=== PATIENT | female | born 1960 | race African-American/Black ===

== ENCOUNTER 2018-09-16 14:53 | Emergency (ER) | payer MEDICAID ==
[~2018-09-16] VITALS: Ht 167.6 cm; Wt 88.0 kg
[~2018-09-16 14:53] MED LIST: ACET1TAB14 PO; DIAZ10TA PO; OCD MT; VIT PO
[2018-09-16 15:58] LABS: BASOPHILS % 0.5 % (0.0-2.0); EOSINOPHILS % 2.3 % (0.0-5.0); HEMATOCRIT. 38.7 % (36.0-48.0); HEMOGLOBIN. 12.4 g/dL (12.0-16.0); MEAN CORPUSCULAR HEMOGLOBIN 24.3 pg (28.0-32.0); MEAN CORPUSCULAR VOLUME 76.1 fL (81.0-99.0); MEAN PLATELET VOLUME 8.6 fl (7.4-10.4); MONOCYTES % 8.8 % (2.0-8.0); NEUTROPHILS % 29.4 % (40.0-76.0); PLATELET 176 x1000/uL (130-400); RED BLOOD CELL COUNT 5.08 mill/uL (4.2-5.4); RED CELL DISTRIBUTION WIDTH 15.9 % (11.6-14.6)
[2018-09-16 16:07] LABS: CHLORIDE 109 mEq/L (98-107)
[2018-09-16 16:12] LABS: ETHANOL BLOOD < 10 mg/dL
[2018-09-16 16:46] LABS: *AMPHETAMINES SCREEN URINE NEGATIVE (NEGATIVE); *BARBITURATES SCREEN URINE NEGATIVE (NEGATIVE); *BENZODIAZEPINES SCREEN URINE PRESUMTIVE POSITIVE (NEGATIVE); *COCAINE SCREEN URINE NEGATIVE (NEGATIVE); METHADONE URINE SCREEN NEGATIVE (NEGATIVE)
[2018-09-16 16:47] LABS: CANNABINOID URINE SCREEN PRESUMTIVE POSITIVE (NEGATIVE); OPIATES URINE SCREEN PRESUMTIVE POSITIVE (NEGATIVE); PHENCYCLIDINE URINE SCREEN NEGATIVE (NEGATIVE)
[2018-09-17] MEDS ORDERED: OLANZAPINE 10 MG/VIAL IM ONE (03:45)
[2018-09-17] MEDS ORDERED: ACETAMINOPHEN 325MG TABLET PO ONE ×2 (15:30→20:45)
[2018-09-18] MEDS: ACETAMINOPHEN 325MG TABLET PO NR ×2 (08:45→12:06)
[2018-09-18 10:24] LABS: CLARITY URINE CLEAR (CLEAR); COLOR URINE YELLOW (YELLOW); KETONES URINE NEGATIVE (NEGATIVE); LEUKOCYTE ESTERASE URINE 2+ (NEGATIVE); NITRITE URINE NEGATIVE (NEGATIVE); OCCULT BLOOD URINE NEGATIVE (NEGATIVE); PROTEIN URINE NEGATIVE (NEGATIVE); UROBILINOGEN URINE 0.2 E.U./dL (0.2-1.0)
[2018-09-18] MEDS ORDERED: NITROFURANTOIN 100MG M/M CAPSULE PO ONE (11:30)
[2018-09-18 16:00] VITALS: BP 130/67
== END 2018-09-18 16:35 ==
LOC: ER 14:53
DX: T42.4X2A Poisoning by benzodiazepines, intentional self-harm, initial encounter (principal); R52 Pain, unspecified; F33.3 Major depressive disorder, recurrent, severe with psychotic symptoms; N39.0 Urinary tract infection, site not specified; F11.10 Opioid abuse, uncomplicated; F12.10 Cannabis abuse, uncomplicated; F15.10 Other stimulant abuse, uncomplicated; Y92.098 Other place in other non-institutional residence as the place of occurrence of the external cause
CPT/HCPCS: 36415; 80048; 80076; 80305; 80307; 80320; 80329; 81003; 85025; 93005; 96372; 99284; J3490; G0480

== ENCOUNTER 2019-03-20 13:05 | Emergency (ER) | payer MEDICAID ==
[~2019-03-20] VITALS: Ht 167.6 cm; Wt 57.0 kg
[2019-03-20] MEDS ORDERED: ACETAMINOPHEN WITH CODEINE 300/30MG TABLET PO STA (15:03)
[2019-03-20 15:37] LABS: BASOPHILS % 0.5 % (0.0-2.0); EOSINOPHILS % 1.2 % (0.0-5.0); HEMATOCRIT. 39.3 % (36.0-48.0); HEMOGLOBIN. 12.5 g/dL (12.0-16.0); LYMPHOCYTES % 49.2 % (20.0-50.0); MEAN CORPUSCULAR VOLUME 75.3 fL (81.0-99.0); MEAN PLATELET VOLUME 8.6 fl (7.4-10.4); MONOCYTES % 7.8 % (2.0-8.0); NEUTROPHILS % 41.3 % (40.0-76.0); PLATELET 187 x1000/uL (130-400); RED BLOOD CELL COUNT 5.21 mill/uL (4.2-5.4); RED CELL DISTRIBUTION WIDTH 15.6 % (11.6-14.6)
[2019-03-20 15:44] LABS: CHLORIDE 109 mEq/L (98-107)
[2019-03-20] MEDS ORDERED: KETOROLAC 60MG/2ML VIAL IM ONE (16:45)
[2019-03-20] MEDS ORDERED: HYDROCODONE/ACETAMINOPHEN 5/325MG TABLET PO ONE (19:15)
[2019-03-20 21:20] VITALS: BP 114/64
== END 2019-03-20 21:30 | disposition home or self-care (01) ==
LOC: ER 13:05
DX: R07.89 Other chest pain (principal)
CPT/HCPCS: 36415; 71045; 80053; 83880; 84484; 85025; 93005; 96372; 99284; J1885

== ENCOUNTER 2020-05-29 13:04 | Emergency (ER) | payer MEDICAID ==
[~2020-05-29] VITALS: Ht 167.6 cm; Wt 55.0 kg
[~2020-05-29 13:04] MED LIST changes: +ALBU18HF2 IH; +FLUT1DIS3 INH; +HYDR-4001 MT; +IPRA3AMP9 NEB; +METO25TA6 PO
[2020-05-29 14:12] LABS: BASOPHILS % 0.7 % (0.0-2.0); HEMATOCRIT. 39.7 % (36.0-48.0); HEMOGLOBIN. 12.7 g/dL (12.0-16.0); LYMPHOCYTES % 48.4 % (20.0-50.0); MEAN CORPUSCULAR HEMOGLOBIN 23.8 pg (28.0-32.0); MEAN CORPUSCULAR VOLUME 74.1 fL (81.0-99.0); MEAN PLATELET VOLUME 8.2 fl (7.4-10.4); MONOCYTES % 9.2 % (2.0-8.0); NEUTROPHILS % 40.7 % (40.0-76.0); PLATELET 208 x1000/uL (130-400); RED BLOOD CELL COUNT 5.36 mill/uL (4.2-5.4); RED CELL DISTRIBUTION WIDTH 15.3 % (11.6-14.6)
[2020-05-29 14:19] LABS: CHLORIDE 107 mEq/L (98-107)
[2020-05-29] MEDS ORDERED: HYDROCODONE/ACETAMINOPHEN 5/325MG TABLET PO ONE (14:45)
[2020-05-29] MEDS ORDERED: IOHEXOL-300 100 ML BOTTLE ONE (15:05)
[2020-05-29 16:28] LABS: CLARITY URINE CLEAR (CLEAR); COLOR URINE YELLOW (YELLOW); KETONES URINE NEGATIVE (NEGATIVE); LEUKOCYTE ESTERASE URINE NEGATIVE (NEGATIVE); NITRITE URINE NEGATIVE (NEGATIVE); OCCULT BLOOD URINE NEGATIVE (NEGATIVE); PH URINE 6.5 (4.5-8.0); PROTEIN URINE NEGATIVE (NEGATIVE); SPECIFIC GRAVITY URINE 1.011 (1.005-1.030); UROBILINOGEN URINE 0.2 E.U./dL (0.2-1.0)
[2020-05-29 16:49] LABS: *AMPHETAMINES SCREEN URINE NEGATIVE (NEGATIVE)
[2020-05-29 16:50] LABS: *BARBITURATES SCREEN URINE NEGATIVE (NEGATIVE); *BENZODIAZEPINES SCREEN URINE NEGATIVE (NEGATIVE); *COCAINE SCREEN URINE NEGATIVE (NEGATIVE); METHADONE URINE SCREEN NEGATIVE (NEGATIVE); OPIATES URINE SCREEN PRESUMTIVE POSITIVE (NEGATIVE); PHENCYCLIDINE URINE SCREEN NEGATIVE (NEGATIVE)
[2020-05-29 16:51] LABS: CANNABINOID URINE SCREEN PRESUMTIVE POSITIVE (NEGATIVE)
[2020-05-29 18:40] VITALS: BP 140/75
== END 2020-05-29 18:53 | disposition home or self-care (01) ==
LOC: ER 13:23
DX: R07.89 Other chest pain (principal); R10.31 Right lower quadrant pain; R51.9 Headache, unspecified; I10 Essential (primary) hypertension; I08.2 Rheumatic disorders of both aortic and tricuspid valves; F41.9 Anxiety disorder, unspecified
CPT/HCPCS: 36415; 71045; 74177; 80053; 80305; 81003; 83690; 84484; 85025; 93005; 99285; Q9967

== ENCOUNTER 2021-04-23 12:41 | Emergency (ER) | payer MEDICAID ==
[~2021-04-23] VITALS: Ht 177.8 cm; Wt 57.0 kg
[2021-04-23 15:23] LABS: BASOPHILS % 0.5 % (0.0-2.0); EOSINOPHILS % 1.2 % (0.0-5.0); HEMATOCRIT. 35.8 % (36.0-48.0); HEMOGLOBIN. 11.6 g/dL (12.0-16.0); LYMPHOCYTES % 40.3 % (20.0-50.0); MEAN CORPUSCULAR HEMOGLOBIN 24.2 pg (28.0-32.0); MEAN CORPUSCULAR VOLUME 74.9 fL (81.0-99.0); MEAN PLATELET VOLUME 8.2 fl (7.4-10.4); MONOCYTES % 8.5 % (2.0-8.0); NEUTROPHILS % 49.5 % (40.0-76.0); PLATELET 189 x1000/uL (130-400); RED BLOOD CELL COUNT 4.78 mill/uL (4.2-5.4)
[2021-04-23 15:35] LABS: CHLORIDE 109 mEq/L (98-107)
[2021-04-23] MEDS ORDERED: LACTATED RINGERS 1,000 ML IV SCH (18:00)
[2021-04-23] MEDS ORDERED: CEFTRIAXONE 1 G PREMIX 50 ML IV ONE (18:00)
[2021-04-23] MEDS ORDERED: KETOROLAC 15MG/ML VIAL IV ONE (18:00)
[2021-04-23] MEDS ORDERED: AZITHROMYCIN 500MG/250ML 250 ML IV ONE (18:00)
[2021-04-23] MEDS ORDERED: LIDOCAINE 5% PATCH TOP SCH (18:15)
[2021-04-23] MEDS ORDERED: ASPIRIN 325MG EC TABLET PO ONE (18:15)
[2021-04-23] MEDS ORDERED: CEFTRIAXONE 1 G PREMIX 50 ML IV NR (18:45)
[2021-04-23] MEDS ORDERED: DIPHENHYDRAMINE 50MG/ML VIAL IV ONE (19:00)
[2021-04-23] MEDS ORDERED: CEFTRIAXONE 1,000 MG in DEXTROSE 5% WATER 50 ML IV NR (19:00)
[2021-04-23] MEDS ORDERED: METHYLPREDNISOLONE SOD SUCC 125 MG/2 ML VIAL IV ONE (19:00)
[2021-04-23] MEDS ORDERED: AZIT250T12 MT (20:27)
[2021-04-23 21:01] VITALS: BP 127/84
== END 2021-04-23 21:07 | disposition home or self-care (01) ==
LOC: ER 15:03
DX: J44.1 Chronic obstructive pulmonary disease with (acute) exacerbation (principal); I44.4 Left anterior fascicular block; I10 Essential (primary) hypertension
CPT/HCPCS: 36415; 71045; 80053; 83880; 84484; 85025; 93005; 96365; 96368; 96375; 99285; J0456; J0696; J1200; J1885; J2930; J7060

== ENCOUNTER 2021-07-30 08:52 | Inpatient (IN) | payer MEDICAID ==
[~2021-07-30] VITALS: Ht 167.6 cm; Wt 75.7 kg
[~2021-07-30 08:52] MED LIST changes: +AZIT250T12 MT
[2021-07-30 12:22] LABS: BASOPHILS % 0.4 % (0.0-2.0); EOSINOPHILS % 1.2 % (0.0-5.0); HEMATOCRIT. 37.6 % (36.0-48.0); HEMOGLOBIN. 11.9 g/dL (12.0-16.0); LYMPHOCYTES % 57.5 % (20.0-50.0); MEAN CORPUSCULAR HEMOGLOBIN 23.8 pg (28.0-32.0); MEAN CORPUSCULAR VOLUME 75.3 fL (81.0-99.0); MEAN PLATELET VOLUME 8.2 fl (7.4-10.4); MONOCYTES % 10.4 % (2.0-8.0); NEUTROPHILS % 30.5 % (40.0-76.0); PLATELET 176 x1000/uL (130-400); RED CELL DISTRIBUTION WIDTH 15.2 % (11.6-14.6)
[2021-07-30 12:51] LABS: CHLORIDE 108 mEq/L (98-107)
[2021-07-30] MEDS ORDERED: MORPHINE SULFATE 4 MG/ML CPJ (NOT FOR IM USE) IV STA ×2 (13:42→17:05)
[2021-07-30] MEDS ORDERED: ONDANSETRON HCL 4MG/2ML INJ IV STA ×2 (13:42→17:05)
[2021-07-30] MEDS ORDERED: ASPIRIN 81MG TABLET PO ONE (13:45)
[2021-07-30] MEDS: NITROGLYCERIN 0.4MG TABLET SL SL PRN ×2 (14:14→16:27)
[2021-07-30] MEDS ORDERED: ENOXAPARIN 60MG/0.6ML SYR SUBCUT ONE (14:45)
[2021-07-30] MEDS ORDERED: LORAZEPAM 2MG/ML CPJ IV PRN (17:00)
[2021-07-30] MEDS ORDERED: NA PHOS,M-B/NA PHOS,DI-BA ENEMA 118ML PR PRN (17:00)
[2021-07-30] MEDS ORDERED: CLONIDINE 0.1MG TABLET PO PRN (17:00)
[2021-07-30] MEDS ORDERED: GUAIFENESIN 200MG/10ML SUGAR FREE UDC PO PRN (17:00)
[2021-07-30] MEDS ORDERED: DIPHENHYDRAMINE 50MG/ML VIAL IV PRN (17:00)
[2021-07-30] MEDS ORDERED: ONDANSETRON HCL 4MG/2ML INJ IV PRN (17:00)
[2021-07-30] MEDS ORDERED: IPRATROPIUM/ALBUTEROL 0.5-3(2.5)MG/3ML NEB NEB PRN (17:00)
[2021-07-30] MEDS: MORPHINE SULFATE 2 MG/ML CPJ (NOT FOR IM USE) IV PRN ×2 (17:22→19:11)
[2021-07-30] MEDS: HYDROCODONE/ACETAMINOPHEN 5/325MG TABLET PO PRN ×2 (17:22→23:36)
[2021-07-30] MEDS ORDERED: NALOXONE HCL 0.4MG/ML VIAL IV PRN (17:30)
[2021-07-30] MEDS: MAGNESIUM/ALUMINUM HYDROXIDE/SIMETHICONE 30ML UDC PO PRN (19:10)
[2021-07-30] MEDS: DOCUSATE SODIUM 100MG CAPSULE PO PRN (19:10)
[2021-07-30 21:50] VITALS: BP 148/97
[2021-07-30 21:58] LABS: INR 1.1; PARTIAL THROMBOPLASTIN TIME 32.6 sec (23.4-31.0); PROTHROMBIN TIME 11.3 sec (9.6-11.0)
[2021-07-30 22:00] LABS: CHLORIDE 108 mEq/L (98-107)
[2021-07-31] VITALS (7 sets, daily range): BP systolic 96–148; BP diastolic 62–97
[2021-07-31] MEDS: MORPHINE SULFATE 2 MG/ML CPJ (NOT FOR IM USE) IV PRN ×5 (00:50→21:18)
[2021-07-31 01:16] LABS: CLARITY URINE CLEAR (CLEAR); COLOR URINE YELLOW (YELLOW); KETONES URINE NEGATIVE (NEGATIVE); LEUKOCYTE ESTERASE URINE NEGATIVE (NEGATIVE); NITRITE URINE NEGATIVE (NEGATIVE); OCCULT BLOOD URINE NEGATIVE (NEGATIVE); PROTEIN URINE NEGATIVE (NEGATIVE); SPECIFIC GRAVITY URINE 1.014 (1.005-1.030); UROBILINOGEN URINE 0.2 E.U./dL (0.2-1.0)
[2021-07-31] MEDS ORDERED: OMEP40CA20 PO (01:45)
[2021-07-31] MEDS ORDERED: QUET50TA23 PO (01:45)
[2021-07-31] MEDS ORDERED: FERR325T6 PO (01:45)
[2021-07-31] MEDS ORDERED: ONDA4TAB50 PO (01:45)
[2021-07-31] MEDS ORDERED: DOCU100T28 PO (01:45)
[2021-07-31] MEDS ORDERED: NITR0.4T49 SL (01:45)
[2021-07-31] MEDS ORDERED: PRAZ1CAP5 MT (01:45)
[2021-07-31] MEDS ORDERED: LORA10TA7 PO (01:45)
[2021-07-31] MEDS ORDERED: GABA-529 PO (01:45)
[2021-07-31] MEDS ORDERED: PRAZ1CAP5 PO (01:45)
[2021-07-31] MEDS ORDERED: SUMA50TA16 PO (01:45)
[2021-07-31] MEDS ORDERED: PROM473S4 MT (01:45)
[2021-07-31 07:55] LABS: BASOPHILS % 0.3 % (0.0-2.0); EOSINOPHILS % 1.4 % (0.0-5.0); HEMATOCRIT. 34.1 % (36.0-48.0); HEMOGLOBIN. 10.6 g/dL (12.0-16.0); LYMPHOCYTES % 50.5 % (20.0-50.0); MEAN CORPUSCULAR HEMOGLOBIN 23.6 pg (28.0-32.0); MEAN CORPUSCULAR VOLUME 75.9 fL (81.0-99.0); MEAN PLATELET VOLUME 8.7 fl (7.4-10.4); MONOCYTES % 10.9 % (2.0-8.0); NEUTROPHILS % 36.9 % (40.0-76.0); PLATELET 162 x1000/uL (130-400); RED CELL DISTRIBUTION WIDTH 15.4 % (11.6-14.6)
[2021-07-31] MEDS: ENOXAPARIN 40MG/0.4ML SYR SUBCUT SCH (08:16)
[2021-07-31] MEDS: ASPIRIN 81MG EC TABLET PO SCH (08:16)
[2021-07-31] MEDS: MAGNESIUM/ALUMINUM HYDROXIDE/SIMETHICONE 30ML UDC PO PRN (08:28)
[2021-08-01] VITALS: BP 100/61
[2021-08-01] MEDS: DOCUSATE SODIUM 100MG CAPSULE PO PRN (02:20)
[2021-08-01] MEDS: HYDROCODONE/ACETAMINOPHEN 5/325MG TABLET PO PRN (02:20)
[2021-08-01 04:00] VITALS: BP 99/55
[2021-08-01 08:00] VITALS: BP 112/67
[2021-08-01] MEDS: ASPIRIN 81MG EC TABLET PO SCH (09:50)
[2021-08-01] MEDS: ENOXAPARIN 40MG/0.4ML SYR SUBCUT SCH (09:50)
[2021-08-01] MEDS: MORPHINE SULFATE 2 MG/ML CPJ (NOT FOR IM USE) IV PRN ×2 (09:51→14:13)
[2021-08-01 12:00] VITALS: BP 98/55
[2021-08-01 15:14] VITALS: BP 98/55
== END 2021-08-01 15:50 | disposition home or self-care (01) | DRG 203 ==
LOC: ER 08:52 → ENRESERV 20:18 → 8WST 22:23
PROVIDERS: ADMIT Internal Medicine; ATTEND Internal Medicine
DX: M94.0 Chondrocostal junction syndrome [Tietze] (principal); E78.00 Pure hypercholesterolemia, unspecified; I25.10 Atherosclerotic heart disease of native coronary artery without angina pectoris; E78.5 Hyperlipidemia, unspecified; F17.210 Nicotine dependence, cigarettes, uncomplicated; F41.9 Anxiety disorder, unspecified; G43.909 Migraine, unspecified, not intractable, without status migrainosus; I10 Essential (primary) hypertension; J44.9 Chronic obstructive pulmonary disease, unspecified; Z20.822 Contact with and (suspected) exposure to COVID-19; Z79.899 Other long term (current) drug therapy; Z82.49 Family history of ischemic heart disease and other diseases of the circulatory system; Z90.710 Acquired absence of both cervix and uterus
CPT/HCPCS: 36415; 71045; 78582; 80048; 80053; 81003; 84484; 85025; 85379; 87426; 93005; 93306; 93970; 99291; A9558; C9803; J1650; J2060; J2270; J2405

== ENCOUNTER 2022-03-21 12:01 | Emergency (ER) | payer MEDICAID ==
[~2022-03-21] VITALS: Ht 167.6 cm; Wt 57.0 kg
[~2022-03-21 12:01] MED LIST changes: -ACET1TAB14 PO; -AZIT250T12 MT; +BISA-81 PO; -DIAZ10TA PO; +DOCU100T28 PO; +FERR325T6 PO; -FLUT1DIS3 INH; +GABA-529 PO; +LORA10TA7 PO; +NITR0.4T49 SL; +OMEP40CA20 PO; +ONDA4TAB50 PO; +PRAZ1CAP5 MT; +PRAZ1CAP5 PO; +PROM473S4 MT; +QUET50TA23 PO; +SUMA50TA16 PO
[2022-03-21] MEDS ORDERED: KETOROLAC 30MG/ML VIAL IV STA (15:00)
[2022-03-21] MEDS ORDERED: DIPHENHYDRAMINE 25MG CAPSULE PO ONE (15:15)
[2022-03-21 16:09] LABS: BASOPHILS % 0.4 % (0.0-2.0); EOSINOPHILS % 1.1 % (0.0-5.0); HEMATOCRIT. 39.7 % (36.0-48.0); HEMOGLOBIN. 12.7 g/dL (12.0-16.0); LYMPHOCYTES % 60.2 % (20.0-50.0); MEAN CORPUSCULAR VOLUME 75.2 fL (81.0-99.0); MEAN PLATELET VOLUME 8.2 fl (7.4-10.4); MONOCYTES % 9.3 % (2.0-8.0); PLATELET 200 x1000/uL (130-400); RED BLOOD CELL COUNT 5.27 mill/uL (4.2-5.4); RED CELL DISTRIBUTION WIDTH 15.5 % (11.6-14.6)
[2022-03-21] MEDS ORDERED: VISCOUS LIDOCAINE 2% 15 ML UDC PO NR (16:15)
[2022-03-21] MEDS ORDERED: DICYCLOMINE 10 MG/5 ML ORAL SYR PO NR (16:15)
[2022-03-21] MEDS ORDERED: MAGNESIUM/ALUMINUM HYDROXIDE/SIMETHICONE 30ML UDC PO NR (16:15)
[2022-03-21] MEDS ORDERED: LIDO1ADH71 TOP (16:28)
[2022-03-21 16:44] LABS: CHLORIDE 108 mEq/L (98-107)
[2022-03-21] MEDS ORDERED: LIDOCAINE 5% PATCH TOP SCH (17:00)
[2022-03-21 18:09] VITALS: BP 137/75
[2022-03-22] MEDS ORDERED: LIDOCAINE 5% PATCH TOP SCH (09:00)
== END 2022-03-21 18:11 | disposition home or self-care (01) ==
LOC: ER 12:01
DX: R07.89 Other chest pain (principal); T78.40XA Allergy, unspecified, initial encounter; R10.9 Unspecified abdominal pain; I10 Essential (primary) hypertension; Z88.6 Allergy status to analgesic agent; Z88.5 Allergy status to narcotic agent; Z79.899 Other long term (current) drug therapy; Z86.59 Personal history of other mental and behavioral disorders; X58.XXXA Exposure to other specified factors, initial encounter
CPT/HCPCS: 36415; 71045; 80053; 83690; 84484; 85025; 99284; J1885; Q0163

== ENCOUNTER 2023-11-12 18:55 | Emergency (ER) | payer OTHER ==
[~2023-11-12] VITALS: Ht 167.6 cm; Wt 54.4 kg
[~2023-11-12 18:55] MED LIST changes: +LIDO1ADH71 TOP
[2023-11-12 19:12] VITALS: O2SAT 100
[2023-11-12 21:24] LABS: CLARITY URINE CLEAR (CLEAR); COLOR URINE YELLOW (YELLOW); GLUCOSE URINE NEGATIVE (NEGATIVE); KETONES URINE TRACE (NEGATIVE); LEUKOCYTE ESTERASE URINE 2+ (NEGATIVE); NITRITE URINE NEGATIVE (NEGATIVE); OCCULT BLOOD URINE NEGATIVE (NEGATIVE); PROTEIN URINE NEGATIVE (NEGATIVE)
[2023-11-12 21:57] LABS: BACTERIA URINE TRACE; RBC URINE NONE SEEN /hpf (0-2); SQUAMOUS EPITHELIAL CELL URINE 1+ /lpf (RARE/1+)
[2023-11-12] MEDS: ACETAMINOPHEN 500MG TABLET PO ONE (22:45)
[2023-11-12] MEDS ORDERED: TOPUD MT (22:59)
[2023-11-12] MEDS ORDERED: CEPH500T MT (23:39)
[2023-11-13 00:03] VITALS: BP 130/77; PULSE 68; RESP 18; TEMP 36.66960; O2SAT 100
== END 2023-11-13 00:04 | disposition home or self-care (01) ==
LOC: ER 18:55
DX: S52.511A Displaced fracture of right radial styloid process, initial encounter for closed fracture (principal); S52.611A Displaced fracture of right ulna styloid process, initial encounter for closed fracture; N39.0 Urinary tract infection, site not specified; Z79.899 Other long term (current) drug therapy; Z90.710 Acquired absence of both cervix and uterus; X58.XXXA Exposure to other specified factors, initial encounter; Y93.89 Activity, other specified; Y92.89 Other specified places as the place of occurrence of the external cause; Y99.8 Other external cause status; Z88.6 Allergy status to analgesic agent; Z88.5 Allergy status to narcotic agent
CPT/HCPCS: 29105; 71101; 72040; 73090; 81003; 99284

== ENCOUNTER 2023-11-28 16:15 | Emergency (ER) | payer OTHER ==
[~2023-11-28] VITALS: Ht 170.2 cm; Wt 75.0 kg
[~2023-11-28 16:15] MED LIST changes: +CEPH500T MT; +TOPUD MT
[2023-11-28 16:29] VITALS: BP 103/63; RESP 18; TEMP 98.5; O2SAT 100
[2023-11-28 16:31] VITALS: PULSE 82; O2SAT 100
[2023-11-28] MEDS: PREDNISONE 20MG TABLET PO ONE (19:25)
[2023-11-28] MEDS: DIPHENHYDRAMINE 25MG CAPSULE PO ONE (19:25)
[2023-11-28] MEDS: FAMOTIDINE 20MG TABLET PO ONE (19:25)
[2023-11-28] MEDS: HYDROCODONE/ACETAMINOPHEN 5/325MG TABLET PO ONE (19:26)
[2023-11-28] MEDS ORDERED: HYDR-4001 MT (19:31)
== END 2023-11-28 20:23 | disposition home or self-care (01) ==
LOC: ER 16:15
DX: S62.101A Fracture of unspecified carpal bone, right wrist, initial encounter for closed fracture (principal); B02.29 Other postherpetic nervous system involvement; Z90.710 Acquired absence of both cervix and uterus; Z79.899 Other long term (current) drug therapy; Z88.5 Allergy status to narcotic agent; Z88.6 Allergy status to analgesic agent; X58.XXXA Exposure to other specified factors, initial encounter; Y93.89 Activity, other specified; Y92.89 Other specified places as the place of occurrence of the external cause; Y99.8 Other external cause status
CPT/HCPCS: 99284; 29105; 73080; 73110; Q0163; J7512; A4565

== ENCOUNTER 2023-12-02 10:02 | Emergency (ER) | payer OTHER ==
[~2023-12-02] VITALS: Ht 167.6 cm; Wt 54.4 kg
[2023-12-02 10:23] VITALS: BP 97/61; O2SAT 100
[2023-12-02] MEDS: DIPHENHYDRAMINE 25MG CAPSULE PO ONE (11:15)
[2023-12-02] MEDS: DIPHENHYDRAMINE 25MG CAPSULE PO SCH (12:22)
[2023-12-02] MEDS ORDERED: DIPH25CA83 PO (12:34)
[2023-12-02 13:00] VITALS: PULSE 71; RESP 16; TEMP 36.72516; O2SAT 100
[2023-12-02 13:04] LABS: CLARITY URINE CLEAR (CLEAR); COLOR URINE YELLOW (YELLOW); GLUCOSE URINE NEGATIVE (NEGATIVE); KETONES URINE NEGATIVE (NEGATIVE); LEUKOCYTE ESTERASE URINE NEGATIVE (NEGATIVE); NITRITE URINE NEGATIVE (NEGATIVE); OCCULT BLOOD URINE NEGATIVE (NEGATIVE); PROTEIN URINE NEGATIVE (NEGATIVE); SPECIFIC GRAVITY URINE 1.016 (1.005-1.030); UROBILINOGEN URINE 0.2 E.U./dL (0.2-1.0)
== END 2023-12-02 13:21 | disposition home or self-care (01) ==
LOC: ER 10:02
DX: L29.9 Pruritus, unspecified (principal); I10 Essential (primary) hypertension; Z90.710 Acquired absence of both cervix and uterus; Z79.899 Other long term (current) drug therapy; Z88.5 Allergy status to narcotic agent; Z88.6 Allergy status to analgesic agent
CPT/HCPCS: 81003; 99283; Q0163

== ENCOUNTER 2023-12-26 12:59 | Emergency (ER) | payer OTHER ==
[~2023-12-26] VITALS: Ht 167.6 cm; Wt 54.4 kg
[~2023-12-26 12:59] MED LIST changes: +DIPH25CA83 PO
[2023-12-26 13:14] VITALS: O2SAT 100
[2023-12-26 14:56] LABS: BASOPHILS % 0.5 % (0.0-2.0); DIFFERENTIAL COMMENT 0; EOSINOPHILS % 0.9 % (0.0-5.0); HEMATOCRIT. 35.2 % (36.0-48.0); HEMOGLOBIN. 11.1 g/dL (12.0-16.0); LYMPHOCYTES % 48.5 % (20.0-50.0); MEAN CORPUSCULAR HEMOGLOBIN 24.5 pg (28.0-32.0); MEAN CORPUSCULAR HGB CONC 31.7 g/dL (31.0-37.0); MEAN CORPUSCULAR VOLUME 77.3 fL (81.0-99.0); MEAN PLATELET VOLUME 7.9 fl (7.4-10.4); MONOCYTES % 11.2 % (2.0-8.0); NEUTROPHILS % 38.9 % (40.0-76.0); PLATELET 206 x1000/uL (130-400); RED BLOOD CELL COUNT 4.56 mill/uL (4.2-5.4); RED CELL DISTRIBUTION WIDTH 15.6 % (11.6-14.6); WHITE BLOOD COUNT 3.9 x1000/uL (4.5-11.0)
[2023-12-26 15:02] LABS: CHLORIDE 106 mEq/L (98-107); POTASSIUM 3.6 mEq/L (3.5-5.1); SODIUM 140 mEq/L (136-145)
[2023-12-26 15:03] LABS: CALCIUM 9.9 mg/dL (8.7-10.4); CARBON DIOXIDE 29 mEq/L (21-32)
[2023-12-26 15:08] LABS: GLUCOSE 80 mg/dL (70-105); UREA NITROGEN BLOOD 18 mg/dL (9-23)
[2023-12-26 15:10] VITALS: TEMP 36.78072; O2SAT 100
[2023-12-26 15:12] VITALS: BP 103/71; PULSE 65; RESP 18
[2023-12-26] MEDS: HYDROCODONE/ACETAMINOPHEN 5/325MG TABLET PO STA (15:12)
[2023-12-26 15:43] LABS: TROPONIN I HIGH SENSITIVITY 37 ng/L (3.0-34)
[2023-12-26] MEDS ORDERED: HYDR-4001 MT (15:55)
== END 2023-12-26 16:07 | disposition home or self-care (01) ==
LOC: ER 12:59
DX: R07.89 Other chest pain (principal); I10 Essential (primary) hypertension; Z90.710 Acquired absence of both cervix and uterus; Z79.899 Other long term (current) drug therapy; Z88.5 Allergy status to narcotic agent; Z88.6 Allergy status to analgesic agent
CPT/HCPCS: 36415; 71045; 80048; 83880; 84484; 85025; 93005; 99285